=== PATIENT | female | born 1940 | race Caucasian/White ===

== ENCOUNTER → 2016-12-31 | Outpatient (CLI) | payer OTHER, BC | LOC: FIMAGING 10:25 | DX: Z12.31 Encounter for screening mammogram for malignant neoplasm of breast (principal) | CPT/HCPCS: G0202 ==

== ENCOUNTER → 2018-03-30 | Outpatient (CLI) | payer OTHER, BC ==
[~2018-03-30] MED LIST: IOPAMIDOL (ISOVUE-300) 100 ML BTL ONE
== END ==
LOC: FIMAGING 10:39
PROVIDERS: ATTEND Internal Medicine
DX: R42 Dizziness and giddiness (principal); R93.0 Abnormal findings on diagnostic imaging of skull and head, not elsewhere classified; Z86.011 Personal history of benign neoplasm of the brain
CPT/HCPCS: 70470; Q9967; 82565-PO

== ENCOUNTER → 2018-06-12 | Outpatient (CLI) | payer OTHER, BC | LOC: FIMAGING 13:42 | PROVIDERS: ATTEND Internal Medicine | DX: Z12.31 Encounter for screening mammogram for malignant neoplasm of breast (principal) ==

== ENCOUNTER → 2018-08-07 | Outpatient (CLI) | payer OTHER, BC | LOC: FIMAGING 13:20 | PROVIDERS: ATTEND Internal Medicine | DX: Z13.820 Encounter for screening for osteoporosis (principal); M85.89 Other specified disorders of bone density and structure, multiple sites; Z78.0 Asymptomatic menopausal state; Z79.890 Hormone replacement therapy ==

== ENCOUNTER → 2018-08-18 | Outpatient (CLI) | payer OTHER, BC | LOC: FIMAGING 09:18 | PROVIDERS: ATTEND Internal Medicine Gastroenterology | DX: K44.9 Diaphragmatic hernia without obstruction or gangrene (principal); K22.2 Esophageal obstruction; K31.89 Other diseases of stomach and duodenum; D64.9 Anemia, unspecified ==